=== PATIENT | male | born 1980 | race Caucasian/White ===

== ENCOUNTER 2017-09-22 14:30 | Outpatient (CLI) | payer BC ==
--- NOTE | 2017-09-22 14:55 | XRAY Report ---
Procedure Date: 09/22/2017 Accession Number: [id number] / [id number] Procedure: XRS - Hand 3 View LT CPT Code: FULL RESULT: EXAM: Hand 3 View LT DATE: 09/22/2017 2:41 PM CLINICAL HISTORY: Pain, possible tendon avulsion COMPARISON: None TECHNIQUE: 3 view left hand FINDINGS: There is no evidence of fracture or dislocation. The joint spaces are preserved. No radiopaque body is seen in the soft tissues. IMPRESSION: Normal left hand.
== END 2017-09-22 14:31 | disposition home or self-care (01) ==
LOC: DI.S 14:30
PROVIDERS: ATTEND Physician Assistant
DX: M79.646 Pain in unspecified finger(s) (principal)

== ENCOUNTER 2023-01-31 09:40 | Outpatient (CLI) | payer BC ==
--- NOTE | 2023-01-31 13:11 | CT Report ---
PROCEDURE: SOFT TISSUE NECK WO INDICATIONS: SALAVARY GLAND STONES TECHNIQUE: Non-contrast 3.0 mm axial sections acquired from the sella to the aortic arch. Additiona l oblique axial 3.0 mm sections acquired through the pharynx. 3 mm thick coronal reformats were gene rated. For radiation dose reduction, the following was used: automated exposure control, adjustment of mA and/or kV according to patient size. COMPARISON: None. FINDINGS: Image quality: Excellent. Lymph nodes: No enlarged lymph nodes seen throughout the neck. Vessels: Non-opacified vessels appear normal in caliber. Neck spaces: The oropharynx, nasopharynx, and pharynx demonstrate no mucosal lesions. The vocal cor ds, false vocal cords, pyriform sinuses, epiglottis, vallecula, and tongue base all appear normal. E xtramucosal spaces appear unremarkable. Glands: The parotid and submandibular glands appear normal, without stones. There is no ductal dilat ion. The thyroid is normal in size and there are no incidental findings. Miscellaneous: Visualized brain and orbits appear normal. Lung apices appear clear. Superficial so ft tissues appear normal. IMPRESSION: Salivary glands demonstrate no stones. No ductal dilation. CLINICAL RECOMMENDATION STATEMENTS: In patients <35 years with an ITN detected on CT, MRI, or extrathyroidal ultrasound, the Committee re commends further evaluation with dedicated thyroid ultrasound if the nodule is "e1 cm and has no susp icious imaging features, and if the patient has normal life expectancy. In patients "e35 years with an ITN detected on CT, MRI, or extrathyroidal ultrasound, the Committee r ecommends further evaluation with dedicated thyroid ultrasound if the nodule is "e1.5 cm and has no s uspicious imaging features, and if the patient has normal life expectancy. (ACR, 2014) Reviewed by: July Parisi MD on 01/31/2023 1:10 PM PDT Approved by: July Parisi MD on 01/31/2023 1:10 PM PDT Station ID: [id number]
== END 2023-01-31 09:41 | disposition home or self-care (01) ==
LOC: DI 09:40
PROVIDERS: ATTEND Family Medicine
DX: K11.5 Sialolithiasis (principal)